=== PATIENT | female | born 1935 ===

== ENCOUNTER 2016-12-09 06:58 | Day surgery (SDC) | payer MEDICARE, BC ==
[~2016-12-09 06:58] MED LIST: Lactated Ringers 1,000 ML IV SCH; Lidocaine 1%/Sod Bicarbonate in NS 8.4% 1 ML Syringe PRN; Sodium Chloride 0.9% 10 ML Syringe FLUSH PRN
[2016-12-09] MEDS ORDERED: fentaNYL 100 MCG/2 ML SDV ONE ×2 (07:17→09:49)
[2016-12-09] MEDS ORDERED: Propofol 200 MG/20 ML SDV ONE (07:17)
[2016-12-09] MEDS ORDERED: Midazolam 1 MG/ML 2 ML SDV ONE (07:18)
[2016-12-09] MEDS ORDERED: Ketamine 500 mg/10 ML MDV ONE (07:18)
--- NOTE | 2016-12-09 07:45 | PCM.PREANE ---
Preanesthetic Assessment - Procedure Proposed Procedure: Kyphoplasty T8, 9, L1,2,3 - Anesthesia/Transfusion/Family Hx Anesthesia History: Prior Anesthesia Without Reaction Family History of Anesthesia Reaction: No Transfusion History: No Prior Transfusion(s) - Review of Systems General: No Symptoms Pulmonary: Other (asthma (seasonal)) Cardiovascular: No Symptoms Neurological: No Symptoms Other: Reports: Easy Bruising - Physical Assessment NPO Status Date: 12/08/16 NPO Status Time: 19:00 O2 Sat by Pulse Oximetry: 100 Respiratory Rate: 16 Vital Signs: Last Vital Signs Temp 37.2 C 12/09/16 07:10 Pulse 84 12/09/16 07:10 Resp 16 12/09/16 07:10 BP 144/77 H 12/09/16 07:10 Pulse Ox 100 12/09/16 07:10 Height: 1.55 m Weight: 39.916 kg ASA Class: 3 Mental Status: Alert & Oriented x3 Airway Class: Mallampati = 2 Dentition: Reports: Normal Dentition Thyro-Mental Finger Breadths: 3 Mouth Opening Finger Breadths: 3 ROM/Head Extension: Limited/Partial Lungs: Clear to Auscultation, Normal Respiratory Effort Cardiovascular: Regular Rhythm - Allergies Allergies/Adverse Reactions: Allergies Allergy/AdvReac Type Severity Reaction Status Date / Time adhesive Allergy Cannot Verified 12/05/16 14:18 Remember latex Allergy Cannot Verified 12/05/16 14:18 Remember morphine Allergy Cannot Verified 12/05/16 14:18 Remember - Blood Blood Available: No Product(s) Available: None - Acknowledgements Anesthesia Type Planned: MAC Pt an Appropriate Candidate for the Planned Anesthesia: Yes Alternatives and Risks of Anesthesia Discussed w Pt/Guardian: Yes Pt/Guardian Understands and Agrees with Anesthesia Plan: Yes PreAnesthesia Questionnaire HEENT History: Reports: Cataract Cardiovascular History: Reports: None Respiratory History: Reports: Asthma Gastrointestinal History: Reports: Other (See Below) Other Gastrointestinal History: digestive dismotility Genitourinary History: Reports: None FREIGHT COORDINATOR History: Reports: None Musculoskeletal History: Reports: Osteoarthritis, Osteoporosis Other Musculoskeletal History: humerus fracture, dowager's hump, generalized pain, scoliosis Neurological History: Reports: Parkinson's Psychiatric History: Reports: None Endocrine/Metabolic History: Reports: None Hematologic History: Reports: None Immunologic History: Reports: None Oncologic (Cancer) History: Reports: Colon Dermatologic History: Reports: None - Past Surgical History Head Surgeries/Procedures: Reports: None HEENT Surgical History: Reports: Cataract Surgery Cardiovascular Surgical History: Reports: None GI Surgical History: Reports: Colonoscopy, EGD, Other (See Below) Other GI Surgeries/Procedures: colon cancer, small bowel resection Female Surgical History: Reports: None Male Surgical History: Reports: None Endocrine Surgical History: Reports: None Neurological Surgical History: Reports: None Musculoskeletal Surgical History: Reports: ORIF, Other (See Below) Other Musculoskeletal Surgeries/Procedures:: Left hip ORIF Oncologic Surgical History: Reports: None Dermatological Surgical History: Reports: None - SUBSTANCE USE Smoking Status *Q: Never Smoker Second Hand Smoke Exposure: No Recreational Drug Use History: No - HOME MEDS Home Medications: Home Meds Diclofenac Sodium/Misoprostol [Arthrotec 75 mg-200 Mcg Tab] 1 tab PO BID [History] Dimenhydrinate [Dramamine] 50 mg PO BID PRN 12/05/16 [History] Ibuprofen 1 - 3 tab PO Q6H PRN 12/05/16 [History] L.acidoph,Paracasei, B.lactis [Probiotic] 1 cap PO DAILY 12/05/16 [History] - CURRENT (IN HOUSE) MEDS Current Meds: Current Medications Lactated Ringer's (Ringers, Lactated) 1,000 mls @ 125 mls/hr IV ASDIRECTED JAMIE Stop: 12/09/16 23:00 Lidocaine/Sodium Bicarbonate (Buffered Lidocaine 1% In Ns 8.4%) 0.25 ml .XX ONETIME PRN PRN Reason: Prior to IV Start Stop: 12/09/16 18:00 Sodium Chloride (Saline Flush) 10 ml FLUSH ASDIRECTED PRN PRN Reason: Keep Vein Open Stop: 12/09/16 18:00 Discontinued Medications Fentanyl (Sublimaze) Confirm Administered Dose 100 mcg .ROUTE .STK-MED ONE Stop: 12/09/16 07:18 Iopamidol (Isovue-300 (61%)) Confirm Administered Dose 100 ml .ROUTE .STK-MED ONE Stop: 12/09/16 07:25 Ketamine HCl (Ketalar) Confirm Administered Dose 500 mg .ROUTE .STK-MED ONE Stop: 12/09/16 07:19 Lidocaine/Epinephrine (Xylocaine 1% With Epinephrine 1:100,000) Confirm Administered Dose 40 ml .ROUTE .STK-MED ONE Stop: 12/09/16 07:25 Midazolam HCl (Versed 1 Mg/Ml) Confirm Administered Dose 2 mg .ROUTE .STK-MED ONE Stop: 12/09/16 07:19 Propofol (Diprivan 20 Ml) Confirm Administered Dose 400 mg .ROUTE .STK-MED ONE Stop: 12/09/16 07:18 Vancomycin HCl (Vancomycin) Confirm Administered Dose 3 gm .ROUTE .STK-MED ONE Stop: 12/09/16 07:25
[2016-12-09] MEDS ORDERED: ceFAZolin 1 GM Vial ONE (08:03)
[2016-12-09] MEDS ORDERED: Ondansetron 4 MG/2 ML SDV IVPUSH PRN (08:04)
[2016-12-09] MEDS ORDERED: traMADol 50 MG Tab PO PRN (08:04)
[2016-12-09] MEDS ORDERED: Ketorolac 15 MG/ML SDV IVPUSH PRN (08:04)
[2016-12-09] MEDS: Lidocaine 1% with EPINEPHrine 1:100,000 20 ML MDV ONE ×4 (08:32→10:37)
[2016-12-09] MEDS: Iopamidol 612 MG/ML 50 ML SDV ONE ×4 (09:20→10:25)
[2016-12-09] MEDS: Vancomycin 1 GM SDV ONE ×5 (09:30→10:30)
[2016-12-09] MEDS ORDERED: Labetalol 100 MG/20 ML MDV ONE (09:49)
[2016-12-09] MEDS ORDERED: Lactated Ringers 1,000 ML ONE (10:29)
--- NOTE | 2016-12-09 11:11 | PCM48HPAN ---
Post Anesthesia Note - EVALUATION WITHIN 48HRS OF ANESTHETIC Vital Signs in Normal Range: Yes Patient Participated in Evaluation: Yes Respiratory Function Stable: Yes Airway Patent: Yes Cardiovascular Function Stable: Yes Hydration Status Stable: Yes Pain Control Satisfactory: Yes Nausea and Vomiting Control Satisfactory: Yes Mental Status Recovered: Yes
--- NOTE | 2016-12-09 14:23 | CR ---
Thoracolumbar spine: Multiple fluoroscopic spot views were obtained at the thoracolumbar junction utilizing C-arm device. Comparison: Previous MRI thoracic spine study of 11/26/16. Study shows vertebroplasty procedure within T12, L1 and L2. Additional vertebroplasty seen more superiorly within the thoracic spine. Fluoroscopy time given as 1597 seconds. Impression: 1. Vertebroplasty procedure. Diagnostic code #2
[2016-12-09 14:32] VITALS: BP 128/74
--- NOTE | 2016-12-10 08:16 | OR ---
DATE OF OPERATION: 12/09/2016 SURGEON: Randolph Werner MD PREOPERATIVE DIAGNOSIS: Acute osteoporotic compression fractures with intractable pain, T10, L1, L2, L3. POSTOPERATIVE DIAGNOSIS: Acute osteoporotic compression fractures with intractable pain, T10, L1, L2, L3. ANESTHESIA: Sedation with local 1% lidocaine and epinephrine. OPERATION PERFORMED: 1. Kyphoplasty, fracture stabilization of T10 with biopsy of T10. 2. Kyphoplasty, fracture stabilization of L3 with biopsy of L3. 3. Kyphoplasty, fracture stabilization of L2. 4. Kyphoplasty, fracture stabilization of L1. DESCRIPTION OF PROCEDURE: The patient was taken to the operative room in supine and was placed under a light sedation. The patient was positioned on the operating table in a prone position for a fluoroscopic approach to the lower thoracic and lumbar spine. After positioning, the operation then proceeded with evaluation of the compression fractures and comparing that to the MRI. Initially, it was felt to do a 5-level kyphoplasty, but the T9 fracture was an anterior corner, the remaining portion of the vertebra appeared to be intact. It was opted not to do T9. The operation proceeded, began at T10 where the fracture of the thoracic vertebra was identified. The pedicles were marked using fluoroscopic imaging. Once the pedicles were marked at T10, the operation proceeded to the prepping and draping of the thoracic lumbar spine for surgical approach. After prepping and draping, the thoracic T10 pedicle right side was approached with the local infiltration of 1% lidocaine and epinephrine on both pedicle sides as was lidocaine with epinephrine used at L3, L2, and L1 on the right and left pedicles. At T10, the operation proceeded with a stab incision being placed over the right pedicle and also left pedicle. Instrumentation was carried down through the skin down to the pedicle itself and facet area and the instrumentation was then advanced into the posterior aspect of the vertebral body. Once in position, the core biopsies were obtained. The balloon inflation was carried out. This fracture was severely compressed. Approximately, 4 mL of cement was then instilled into the vertebral body with 2 mL on each side. This was handled very well and filled the vertebral body. The operation then proceeded with removal of the instruments and then proceeded down to L3 and L2 and L1 where the pedicles were infiltrated with 1% lidocaine and epinephrine on the right and left side. At L3, the pedicles were approached and guided with fluoroscopy on both the right and left side with positioning of the cannula in the posterior aspect of the vertebral body. The cement was then instilled into the vertebral body on both the right and left side putting approximately 4-5 mL. This had good fill in both sides. Then, the operation proceeded to L2. Again, the pedicles were identified. Stab incisions were used on the right and left side. Instrumentation was then carried down through the skin and subcutaneous tissues down to the pedicle and advanced into the posterior aspect of the vertebral body with fluoroscopic guidance. Again, the biopsies were taken at L2 and also L3 and the operation proceeded with a balloon inflation and curetting of the vertebral body. Once that was completed, the operation proceeded with instilling approximately 4-6 mL into the vertebral body. This had a good fill and the operation proceeded to the L1 level where the pedicles were very narrow at L1 than the usual. Using the arm-first approach, the vertebral body was then approached from the right and left side with advancement of the instruments to the posterior aspect of the vertebral body itself. The operation proceeded with curetting of the vertebral body and then balloon inflation was carried out and the operation then proceeded with final placement of cement into the vertebral body at L1 and no biopsy was taken. Approximately, 4 mL of cement. There was noted extravasation after the 4 mL, it was opted to stop at this time and then the operation proceeded with final evaluation and x-rays, and then the skin was closed with 3-0 Prolene. Standard dressings were applied. The patient tolerated this procedure well and left the operating room in stable condition to room for recovery. ESTIMATED BLOOD LOSS: MMODAL /[id number]
== END 2016-12-09 14:55 | disposition home or self-care (01) ==
LOC: JD.SDS 06:58
PROVIDERS: ATTEND Specialist
DX: M80.08XA Age-related osteoporosis with current pathological fracture, vertebra(e), initial encounter for fracture (principal); G20 Parkinson's disease; J45.909 Unspecified asthma, uncomplicated; M19.90 Unspecified osteoarthritis, unspecified site; Z85.048 Personal history of other malignant neoplasm of rectum, rectosigmoid junction, and anus; Z88.5 Allergy status to narcotic agent; Z91.040 Latex allergy status; Z91.048 Other nonmedicinal substance allergy status; Z79.899 Other long term (current) drug therapy; Z98.49 Cataract extraction status, unspecified eye; Z90.49 Acquired absence of other specified parts of digestive tract; Z98.890 Other specified postprocedural states; M54.6 Pain in thoracic spine
CPT/HCPCS: 22513; 22515; 88305; 88311; A9270; C1713; J0690; J1885; J2250; J3010; J3370; J7120; Q9967; 01936; J2704